=== PATIENT | male | born 1995 ===

== ENCOUNTER 2021-02-12 10:13 | Outpatient (CLI) | payer OTHER | END 2021-02-12 10:16 | disposition home or self-care (01) | LOC: PPH VACUNA 10:13 | PROVIDERS: ATTEND Emergency Medicine Pediatric Emergency Medicine | DX: Z23 Encounter for immunization (principal) ==

== ENCOUNTER 2021-05-06 15:15 | Outpatient (CLI) | payer OTHER | END 2021-05-06 15:30 | disposition home or self-care (01) | LOC: PPH VACUNA 15:15 | PROVIDERS: ATTEND Emergency Medicine Pediatric Emergency Medicine | DX: Z23 Encounter for immunization (principal) ==